=== PATIENT | male | born 1985 | race Caucasian/White ===

== ENCOUNTER 2017-08-20 16:53 | Emergency (ER) | payer SELFPAY ==
[~2017-08-20] VITALS: Ht 185.4 cm; Wt 77.3 kg
[2017-08-20 16:55] VITALS: BP 108/64
[2017-08-20 17:39] LABS: BASOPHILS % (AUTO) 1.3 % (0.0-2.0); HEMATOCRIT 38.4 % (41-53); HEMOGLOBIN 13.5 g/dL (13.5-17.5); LYMPHOCYTES # (AUTO) 1.8 K/uL (1.0-4.8); MEAN CORPUSCULAR HGB CONC 35.1 G/dL (31.0-37.0); MEAN CORPUSCULAR VOLUME 83 fL (80-100); MONOCYTES # (AUTO) 0.5 K/uL (0.1-1.0); MONOCYTES % (AUTO) 7.2 % (2.0-9.0); NEUTROPHILS # (AUTO) 4.3 K/uL (1.8-7.7); NEUTROPHILS % (AUTO) 62.5 % (40.0-70.0); PLATELET COUNT (AUTO) 336 K/uL (150-450); RED BLOOD CELL COUNT(AUTO) 4.66 MIL/uL (4.50-5.90); RED CELL DISTRIBUTION WIDTH 13.9 % (11.5-14.5)
[2017-08-20 17:52] LABS: ANION GAP 9 mmol/L (8-16); CALCIUM, TOTAL 9.2 mg/dL (8.8-10.5); CARBON DIOXIDE 30 mmol/L (22-29); CHLORIDE 97 mmol/L (98-107); CREATININE 0.92 mg/dL (0.60-1.30); GLOMERULAR FILTR. RATE CALC > 60 mL/min (>60); GLUCOSE,RANDOM 118 mg/dL (70-110); POTASSIUM 3.3 mmol/L (3.5-5.1); SODIUM SERUM 136 mmol/L (136-145); UREA NITROGEN, BLOOD 9 mg/dL (7-18)
[2017-08-20 18:08] LABS: B-TYPE NATRIURETIC PEPTIDE 14 pg/mL (0-100)
[2017-08-20 18:16] LABS: ALANINE AMINOTRANSFERASE 100 U/L (12-78); ALBUMIN 3.8 g/dL (3.4-5.0); ALKALINE PHOSPHATASE 65 U/L (46-116); ASPARTATE AMINOTRANSFERASE 45 U/L (15-37); BILIRUBIN,TOTAL 0.3 mg/dL (0.1-1.0); CREATINE KINASE MB 0.5 ng/mL (0-5); CREATINE KINASE, TOTAL 86 U/L (39-308); TOTAL PROTEIN, SERUM 7.8 g/dL (6.4-8.2)
[2017-08-20 18:22] LABS: PROTHROMBIN TIME 10.2 SEC (9.4-11.6)
== END 2017-08-20 17:40 | disposition left against medical advice (07) ==
LOC: EMS 16:55
DX: R07.9 Chest pain, unspecified (principal); Z53.21 Procedure and treatment not carried out due to patient leaving prior to being seen by health care provider
CPT/HCPCS: 93005; 99281